=== PATIENT | female | born 1995 | race Caucasian/White ===

== ENCOUNTER 2017-05-27 17:56 | Emergency (ER) | payer SELFPAY ==
[~2017-05-27] VITALS: Ht 167.6 cm; Wt 45.0 kg
[2017-05-27 17:58] VITALS: BP 117/78; PULSE 77; RESP 20; TEMP 98.5; O2SAT 98
[2017-05-27] MEDS ORDERED: PANT40TA3 PO (18:26)
--- NOTE | 2017-05-27 18:33 | PD ---
HPI Chief Complaint: GI Complaint Time Seen by Provider: 18:20 Travel History International Travel<30 days: No Contact w/Intl Traveler<30days: No Traveled to known affect area: No History of Present Illness HPI 21 year old female presents to the ED for evaluation of nausea and vomiting intermittently occurring over the last 3 years, but states it seems to be worse over the last 2 months. Pt states this all started in [place] and she was supposed to follow up with GI however she could not afford the $800 endoscopy. She reports that the only alleviating factor that allows her to eat without vomiting is smoking marijuana but she doesn't want to have to do this without actually knowing what is wrong with her. The last time she vomited was today after eating a cheese quesadilla. No abdominal pain, just some epigastric discomfort and burning. No hematemesis. Pt denies diarrhea. She has normal voids. No chance of . No other symptoms to report. PFSH Past Medical History Medical History: Denies Significant Hx Tetanus Vaccination: < 5 Years ?: Not LMP: 05/07/17 Past Surgical History Surgical History: No Previous Surgery Social History Alcohol Use: No Tobacco Use: No Substance Use: Yes (pot) Allergies-Medications (Allergen,Severity, Reaction): Coded Allergies: No Known Allergies (Verified Allergy, Unknown, 05/27/17) Reported Meds & Prescriptions Reported Meds & Active Scripts Active Reglan (Metoclopramide HCl) 5 Mg Tab 5 Mg PO TIDAC Reported Pantoprazole (Pantoprazole Sodium) 40 Mg Tab 40 Mg PO DAILY Review of Systems Except as stated in HPI: all other systems reviewed are Neg Physical Exam Narrative GENERAL: Thin female patient in no acute distress SKIN: Warm and dry. HEAD: Atraumatic. Normocephalic. EYES: Pupils equal and round. No scleral icterus. No injection or drainage. ENT: No nasal bleeding or discharge. Mucous membranes pink and moist. NECK: Trachea midline. No JVD. CARDIOVASCULAR: Regular rate and rhythm. RESPIRATORY: No accessory muscle use. Clear to auscultation. Breath sounds equal bilaterally. GASTROINTESTINAL: Abdomen soft, non-tender, nondistended. No guarding; no rebound tenderness. Hepatic and splenic margins not palpable. MUSCULOSKELETAL: Extremities without clubbing, cyanosis, or edema. No obvious deformities. NEUROLOGICAL: Awake and alert. No obvious cranial nerve deficits. Motor grossly within normal limits. Five out of 5 muscle strength in the arms and legs. Normal speech. Data Data Last Documented VS Vital Signs Date Time Temp Pulse Resp B/P (MAP) Pulse Ox O2 Delivery O2 Flow Rate FiO2 05/27/17 20:04 84 20 101/53 (69) 99 05/27/17 19:32 Room Air 05/27/17 17:58 98.5 Orders Orders Iv Access Insert/Monitor (05/27/17 18:31) Basic Metabolic Panel (Bmp) (05/27/17 18:31) Urinalysis - C+S If Indicated (05/27/17 18:31) Ed Urine Pregnancytest Poc (05/27/17 18:31) Complete Blood Count With Diff (05/27/17 18:31) Sodium Chlor 0.9% 1000 Ml Inj (Ns 1000 M (05/27/17 18:45) Metoclopramide Inj (Reglan Inj) (05/27/17 18:45) Diphenhydramine Inj (Benadryl Inj) (05/27/17 18:45) Labs Laboratory Tests Test 05/27/17 18:35 White Blood Count 5.7 TH/MM3 Red Blood Count 3.96 MIL/MM3 Hemoglobin 12.1 GM/DL Hematocrit 35.8 % Mean Corpuscular Volume 90.4 FL Mean Corpuscular Hemoglobin 30.6 PG Mean Corpuscular Hemoglobin Concent 33.8 % Red Cell Distribution Width 12.2 % Platelet Count 195 TH/MM3 Mean Platelet Volume 8.1 FL Neutrophils (%) (Auto) 74.2 % Lymphocytes (%) (Auto) 20.4 % Monocytes (%) (Auto) 4.5 % Eosinophils (%) (Auto) 0.5 % Basophils (%) (Auto) 0.4 % Neutrophils # (Auto) 4.2 TH/MM3 Lymphocytes # (Auto) 1.2 TH/MM3 Monocytes # (Auto) 0.3 TH/MM3 Eosinophils # (Auto) 0.0 TH/MM3 Basophils # (Auto) 0.0 TH/MM3 CBC Comment DIFF FINAL Differential Comment Urine Color YELLOW Urine Turbidity CLEAR Urine pH 6.0 Urine Specific [place] 1.018 Urine Protein NEG mg/dL Urine Glucose (UA) NEG mg/dL Urine Ketones 80 mg/dL Urine Occult Blood NEG Urine Nitrite NEG Urine Bilirubin NEG Urine Urobilinogen LESS THAN 2.0 MG/DL Urine Leukocyte Esterase NEG Urine WBC LESS THAN 1 /hpf Urine Squamous Epithelial Cells 1 /hpf Urine Transitional Epithelial Cells <1 /hpf Urine Bacteria RARE /hpf Urine Mucus FEW /lpf Microscopic Urinalysis Comment CULT NOT INDICATED Blood Urea Nitrogen 14 MG/DL Creatinine 0.77 MG/DL Random Glucose 88 MG/DL Calcium Level 9.5 MG/DL Sodium Level 140 MEQ/L Potassium Level 3.8 MEQ/L Chloride Level 106 MEQ/L Carbon Dioxide Level 25.4 MEQ/L Anion Gap 9 MEQ/L Estimat Glomerular Filtration Rate 95 ML/MIN MDM Medical Decision Making Medical Screen Exam Complete: Yes Emergency Medical Condition: Yes Medical Record Reviewed: Yes Differential Diagnosis cyclic vomiting versus gastroparesis versus gastritis versus eating disorder Narrative Course 21 year old female presents to the ED for evaluation of vomiting. Pt appears well. Her abdominal exam is benign. This has been ongoing for three years and the patient has not sought the appropriate work up due to funds. Except for ketones in her urine to indicate some possible dehydration, the patients lab work is reassuring. She is given IVNS fluid bolus. Will prescribe reglan and encourage outpatient followup. Also counseled on marijuana use and the potential for gastroparesis resulting from it. She agrees to return immediately to the ED for acute worsening. Diagnosis Primary Impression: Chronic vomiting Referrals: [employer] Primary Care Physician Patient Instructions: Diet for Stomach Ulcers and Gastritis (GEN), General Instructions Additional Instructions: Avoid acidic and abrasive foods Follow up with your primary care provider Seek Gastroenterology evaluation; outpatient endoscopy may be warranted Return to ED with any acute worsening of symptoms Med/Other Pt SpecificInfo: Prescription(s) given Scripts Metoclopramide (Reglan) 5 Mg Tab 5 MG PO TIDAC, #30 TAB 0 Refills Prov: Migdalia Coles 05/27/17 Disposition: 01 DISCHARGE HOME Condition: Stable Migdalia Coles May 27, 2017 18:33
[2017-05-27] MEDS ORDERED: METOCLOPRAMIDE HCL 10 MG/2 ML VIAL IV PUSH ONE (18:45)
[2017-05-27] MEDS ORDERED: SODIUM CHLOR 0.9% 1000 ML INJ 1,000 ML IV ONE (18:45)
[2017-05-27] MEDS ORDERED: diphenhydrAMINE HCL 50 MG/ML VIAL IV PUSH ONE (18:45)
[2017-05-27 18:53] LABS: AUTOMATED NEUTROPHIL # 4.2 TH/MM3 (1.8-7.7); BASOPHIL % 0.4 % (0.0-2.0); EOSINOPHIL % 0.5 % (0.0-4.0); HEMATOCRIT 35.8 % (35.0-46.0); HEMO FLAGS DIFF FINAL; LYMPH % 20.4 % (9.0-44.0); LYMPHOCYTE # 1.2 TH/MM3 (1.0-4.8); MEAN CELL VOLUME 90.4 FL (80.0-100.0); MEAN CORPUSCULAR HEMOGLOBIN 30.6 PG (27.0-34.0); MEAN CORPUSCULAR HGB CONC 33.8 % (32.0-36.0); MONO % 4.5 % (0.0-8.0); NEUT % 74.2 % (16.0-70.0); PLATELET COUNT 195 TH/MM3 (150-450); RED BLOOD COUNT 3.96 MIL/MM3 (4.00-5.30); RED CELL DISTRIBUTION WIDTH 12.2 % (11.6-17.2); WHITE BLOOD COUNT 5.7 TH/MM3 (4.0-11.0)
[2017-05-27 19:11] LABS: BACTERIA, URINE RARE /hpf; BLOOD, URINE NEG (NEG); COMMENT (UR) CULT NOT INDICATED; CULTURE IF INDICATED CULT NOT INDICATED; GLUCOSE,URINE NEG (NEG); KETONE, URINE 80 mg/dL (NEG); MUCUS URINE FEW /lpf (OCC); NITRITE,URINE NEG (NEG); SQUAMOUS EPITHELIAL CELL URINE 1 /hpf (0-5); TRANSITIONAL EPI CELLS, URINE <1 /hpf; URINE COLOR YELLOW (YELLW/STRAW)
[2017-05-27 19:19] LABS: BICARBONATE 25.4 MEQ/L (21.0-32.0); POTASSIUM 3.8 MEQ/L (3.5-5.1)
[2017-05-27 19:32] VITALS: BP 100/53; PULSE 84; RESP 20; O2SAT 99
[2017-05-27] MEDS ORDERED: REGL5TAB PO (19:36)
[2017-05-27 20:04] VITALS: BP 101/53
== END 2017-05-27 20:07 | disposition home or self-care (01) ==
LOC: NEPD 17:56
DX: R11.2 Nausea with vomiting, unspecified (principal); Z79.899 Other long term (current) drug therapy
CPT/HCPCS: 80048; 81001; 84703; 85025; 96374; 96375; 99284; J1200; J2765; J7030